=== PATIENT | male | born 1950 | race Caucasian/White ===

== ENCOUNTER 2017-02-10 12:25 | Outpatient (CLI) | payer BC ==
[2017-02-10 16:48] LABS: ALT (SGPT) 31 U/L (0-55); AST (SGOT) 18 U/L (5-34); Albumin 4.4 g/dL (3.4-4.8); Alkaline Phosphatase 67 U/L (40-150); Anion Gap 15 mmol/L (10-20); BUN (Urea Nitrogen) 12 mg/dL (8.4-25.7); Bilirubin, Total 0.5 mg/dL (0.2-1.2); Calc. Creatinine Clearance 0 mL/min (70-130); Calcium 9.6 mg/dL (7.8-10.44); Carbon Dioxide 25 mmol/L (23-31); Cardiac Risk 5.6 (Less than 4.5); Chloride 104 mmol/L (98-107); Cholesterol 206 mg/dL (< 200 Desired); Estimated GFR-MDRD Greater than 90; Globulin 2.9 g/dL (2.4-3.5); Glucose 112 mg/dL (80-115); HDL Cholesterol 37 mg/dL (>60 Neg Risk); LDL Cholesterol, Calculated 116 mg/dL; Potassium 4.2 mmol/L (3.5-5.1); Protein, Total 7.3 g/dL (5.8-8.1); Sodium 140 mmol/L (136-145); Triglycerides 266 mg/dL (Less than 150); Uric Acid 6.8 mg/dL (3.5-7.2)
[2017-02-10 17:04] LABS: PSA-Symptomatic (DIAGNOSTIC) Less than 0.02 ng/mL (0-4.0); Thyroid Stimulating Hormone 2.8392 uIU/mL (0.35-4.94)
[2017-02-10 17:22] LABS: Band 1 % (5-11); Eosinophils 3 % (0-10); Hemoglobin 13.9 g/dL (14.0-18.0); Hemoglobin A1c 5.4 % (4.0-6.0); Lymphocytes 13 % (21-51); MDiff Complete? YES; Mean Corpuscular HGB CONC 33.4 g/dL (32.0-36.0); Mean Corpuscular Hemoglobin 29.8 pg (27.0-31.0); Mean Corpuscular Volume 89.1 fl (80.0-94.0); Mean Platelet Volume 7.2 fL (7.4-10.4); Monocytes 3 % (0-10); Neutrophil 76 % (42-75); Platelet Count 200 thou/uL (130-400); RBC Distribution Width 12.3 % (11.5-14.5); Red Blood Cell (RBC) Count 4.67 mill/uL (4.70-6.10); White Blood Cell (WBC) Count 5.7 thou/uL (4.8-10.8)
== END 2017-02-10 12:26 ==
LOC: LABLEX 12:25
PROVIDERS: ATTEND Family Medicine
DX: C61 Malignant neoplasm of prostate (principal); E78.5 Hyperlipidemia, unspecified; E78.1 Pure hyperglyceridemia; D64.9 Anemia, unspecified; M10.9 Gout, unspecified; G47.33 Obstructive sleep apnea (adult) (pediatric); I10 Essential (primary) hypertension; M54.5 Low back pain
CPT/HCPCS: 80053; 80061; 83036; 84153; 84443; 84550; 85025

== ENCOUNTER 2017-02-11 11:09 | Emergency (ER) | payer BC ==
[2017-02-11 11:47] LABS: Bilirubin Negative (Negative); Blood, Urine Negative (Negative); Clarity Clear (Clear); Glucose, Urine (Dipstick) Negative (Negative); Leukocyte Negative (Negative); Nitrite Negative (Negative); Protein, Urine (Dipstick) Negative (Neg-Trace); Urobilinogen 0.2 mg/dL (0.2-1.0)
[2017-02-11 12:00] LABS: #Basophils 0.1 thou/uL (0.0-0.2); #Eosinphils 0.2 thou/uL (0.0-0.7); #Lymphocytes 0.8 thou/uL (1.20-3.40); #Monocytes 0.3 thou/uL (0.11-0.59); #Neutrophils 4.5 thou/uL (1.40-6.50); %Basophils 1.3 % (0.0-1.0); %Eosinophils 3.8 % (0.0-10.0); %Lymphocytes 13.7 % (21.0-51.0); %Monocytes 5.1 % (0.0-10.0); %Neutrophils 76.1 % (42.0-75.0); Mean Corpuscular HGB CONC 34.1 g/dL (32.0-36.0); Mean Corpuscular Hemoglobin 29.8 pg (27.0-31.0); Mean Corpuscular Volume 87.5 fl (80.0-94.0); Mean Platelet Volume 6.9 fL (7.4-10.4); Platelet Count 203 thou/uL (130-400); Red Blood Cell (RBC) Count 4.68 mill/uL (4.70-6.10); White Blood Cell (WBC) Count 5.8 thou/uL (4.8-10.8)
[2017-02-11 12:16] LABS: ALT (SGPT) 28 U/L (0-55); AST (SGOT) 16 U/L (5-34); Albumin 4.3 g/dL (3.4-4.8); Alkaline Phosphatase 65 U/L (40-150); Anion Gap 13 mmol/L (10-20); BUN (Urea Nitrogen) 11 mg/dL (8.4-25.7); Bilirubin, Total 0.6 mg/dL (0.2-1.2); Calc. Creatinine Clearance 0 mL/min (70-130); Calcium 9.3 mg/dL (7.8-10.44); Carbon Dioxide 27 mmol/L (23-31); Chloride 102 mmol/L (98-107); Estimated GFR-MDRD Greater than 90; Globulin 3.1 g/dL (2.4-3.5); Glucose 100 mg/dL (80-115); Lipase 16 U/L (8-78); Potassium 3.5 mmol/L (3.5-5.1); Protein, Total 7.4 g/dL (5.8-8.1); Sodium 138 mmol/L (136-145)
--- NOTE | 2017-02-11 18:48 | CT ---
CT ABDOMEN AND PELVIS WITH CONTRAST 02/11/[address] of the abdomen and pelvis was performed for evaluation of pain. Axial slices were acquired after giving oral and IV contrast. Then coronal reconstructions were done. The lung bases are clear. The liver, spleen, pancreas, adrenal glands, and kidneys showed no space o ccupying lesions. No mass, hydronephrosis or calcification was seen in the kidneys. There has been a prior cholecystectomy. The abdominal aorta is normal in caliber. It contains some calcified plaque within it. The bowel is nondistended. There is no sign of bowel wall thickening or inflammatory changes around bowel. CT of the pelvis shows no free fluid, inflammatory changes or adenopathy. Surgical clips are seen ar ound the prostatectomy site. There is concentric thickening of the urinary bladder wall that may rel ate to chronic outlet obstruction or prior radiation. Degenerative changes are fairly prominent in the lower lumbar spine. There is a suggestion of signif icant spinal stenosis in the lower thoracic spine at approximately the T10-T11 level. This might nee d further followup and the findings should be correlated with the patient's pain. IMPRESSION: 1. No acute intra-abdominal changes. 2. Concentric thickening of the urinary bladder wall. 3. Probable spinal stenosis at the T10-T11 level. POS: HOME
== END 2017-02-11 14:08 | disposition home or self-care (01) ==
LOC: BURERS 11:09
DX: M48.04 Spinal stenosis, thoracic region (principal); K21.9 Gastro-esophageal reflux disease without esophagitis; I10 Essential (primary) hypertension; F17.220 Nicotine dependence, chewing tobacco, uncomplicated
CPT/HCPCS: 74177; 80053; 81003; 83690; 85025; 87086

== ENCOUNTER 2017-02-11 11:17 | Outpatient (CLI) | payer BC | END 2017-02-11 11:18 | disposition home or self-care (01) | LOC: LABLEX 11:17 | PROVIDERS: ATTEND Family Medicine | DX: R10.9 Unspecified abdominal pain (principal) | CPT/HCPCS: 87086 ==

== ENCOUNTER 2017-05-22 10:16 | Outpatient (CLI) | payer BC | END 2017-05-22 10:17 | disposition home or self-care (01) | LOC: BURLAB 10:16 | PROVIDERS: ATTEND Radiology Radiation Oncology | DX: C61 Malignant neoplasm of prostate (principal) | CPT/HCPCS: 36415; 84153 ==